=== PATIENT | female | born 1990 | race African-American/Black ===

== ENCOUNTER 2016-12-13 22:50 | Emergency (ER) | payer SELFPAY ==
[~2016-12-13] VITALS: Ht 170.2 cm; Wt 110.0 kg
[~2016-12-13 22:50] MED LIST: METH500T3 PO; PROC10TA4 PO
[2016-12-13 22:55] VITALS: BP 177/123; PULSE 79; RESP 16; TEMP 98.8; O2SAT 100
--- NOTE | 2016-12-13 23:32 | PD ---
HPI Chief Complaint: Hand Edger Problem/Complaint Time Seen by Provider: 23:13 Travel History International Travel<30 days: No Contact w/Intl Traveler<30days: No Traveled to known affect area: No History of Present Illness HPI 26-year-old female complaining of vaginal bleeding and dizziness. Patient states that she started having vaginal bleeding 3 weeks ago. Patient states that the vaginal bleeding got progressively worse for the past 3 weeks. Patient states that for the past several days, she used 7 pads a day. Patient denies abdominal pain or pelvic pain. Patient denies any headache. Patient denies any chest pain or shortness of breath. Patient denies fever chills. Patient has history of excessive vaginal bleeding in the past. Patient was seen by carpenter assistant and started on control pills. Patient was on control pills for 2 months and then stopped taking it. PFSH Past Medical History Hx Anticoagulant Therapy: No ADHD: No Anemia: Yes Bipolar Disorder: Yes Anxiety: Yes Depression: Yes Cancer: No Cardiovascular Problems: No Chemotherapy: No Cerebrovascular Accident: No Diabetes: No Diminished Hearing: No GERD: Yes Genitourinary: Yes (UTI'S) Headaches: Yes Hypertension: Yes Neurologic: Yes (FREQUENT HEADACHES) Psychiatric: Yes Reproductive: Yes Respiratory: No Immunizations Current: Yes Migraines: Yes Seizures: No Thyroid Disease: No Ulcer: Yes ?: Not LMP: 12/04/16 : 0 Ovarian Cysts: Yes (LEFT) Past Surgical History Appendectomy: No Cholecystectomy: No Hysterectomy: No Other Surgery: No Social History Alcohol Use: No Tobacco Use: No Substance Use: No Allergies-Medications (Allergen,Severity, Reaction): Coded Allergies: Red Dyes - Various (Verified Allergy, Severe, RASH, 12/13/16) Seafood (Verified Allergy, Severe, THROAT SWELLING, 12/13/16) Bactrim (Unverified Allergy, Intermediate, Hives, 12/13/16) Neosporin (Verified Allergy, Intermediate, RASH AND HIVES, 12/13/16) Mustard (Verified Allergy, Unknown, 12/13/16) *MDRO Multi-Drug Resistant Organism (Unverified Adverse Reaction, Unknown , 12/13/16) MRSA Reported Meds & Prescriptions Reported Meds & Active Scripts Active No Active Prescriptions or Reported Medications Review of Systems General / Constitutional: No: Fever Eyes: No: Visual changes HENT: Positive: Lightheadedness, No: Headaches Cardiovascular: No: Chest Pain or Discomfort Respiratory: No: Shortness of Breath Gastrointestinal: No: Abdominal Pain Genitourinary: Positive: Vaginal Bleeding, No: Dysuria Musculoskeletal: No: Pain Skin: No Rash Neurologic: No: Weakness Psychiatric: No: Depression Endocrine: No: Polydipsia Hematologic/Lymphatic: No: Easy Bruising Physical Exam Narrative GENERAL: Well-nourished, well-developed patient. SKIN: Focused skin assessment warm/dry. HEAD: Normocephalic. EYES: No scleral icterus. No injection or drainage. NECK: Supple, trachea midline. No JVD or lymphadenopathy. CARDIOVASCULAR: Regular rate and rhythm without murmurs, gallops, or rubs. RESPIRATORY: Breath sounds equal bilaterally. No accessory muscle use. GASTROINTESTINAL: Abdomen soft, non-tender, nondistended. MUSCULOSKELETAL: No cyanosis, or edema. BACK: Nontender without obvious deformity. No CVA tenderness. Neurologic exam normal. FINANCIAL ANALYSIS CONSULTANT exam: Data Data Last Documented VS Vital Signs Date Time Temp Pulse Resp B/P Pulse Ox O2 Delivery O2 Flow Rate FiO2 12/13/16 22:55 98.8 79 16 177/123 100 Room Air Orders Complete Blood Count With Diff (12/13/16 23:24) Basic Metabolic Panel (Bmp) (12/13/16 23:24) Iv Access Insert/Monitor (12/13/16 23:24) Ed Urine Pregnancytest Poc (12/13/16 23:24) Labs Laboratory Tests Test 12/13/16 23:35 White Blood Count 7.3 TH/MM3 Red Blood Count 3.55 MIL/MM3 Hemoglobin 8.6 GM/DL Hematocrit 27.0 % Mean Corpuscular Volume 76.2 FL Mean Corpuscular Hemoglobin 24.3 PG Mean Corpuscular Hemoglobin 31.9 % Concent Red Cell Distribution Width 16.7 % Platelet Count 248 TH/MM3 Mean Platelet Volume 8.9 FL Neutrophils (%) (Auto) 58.1 % Lymphocytes (%) (Auto) 36.7 % Monocytes (%) (Auto) 3.5 % Eosinophils (%) (Auto) 1.4 % Basophils (%) (Auto) 0.3 % Neutrophils # (Auto) 4.3 TH/MM3 Lymphocytes # (Auto) 2.7 TH/MM3 Monocytes # (Auto) 0.3 TH/MM3 Eosinophils # (Auto) 0.1 TH/MM3 Basophils # (Auto) 0.0 TH/MM3 CBC Comment AUTO DIFF Differential Comment AUTO DIFF CONFIRMED Ovalocytes 1+ Sodium Level 139 MEQ/L Potassium Level 3.7 MEQ/L Chloride Level 104 MEQ/L Carbon Dioxide Level 25.6 MEQ/L Anion Gap 9 MEQ/L Blood Urea Nitrogen 12 MG/DL Creatinine 0.77 MG/DL Estimat Glomerular Filtration 109 ML/MIN Rate Random Glucose 119 MG/DL Calcium Level 8.9 MG/DL [facility] Medical Decision Making Medical Screen Exam Complete: Yes Emergency Medical Condition: Yes Interpretation(s) 23:43 PM. Urine test negative. 12:11 AM. CBC with hemoglobin 8.6 hematocrit 27.0. Patient has hemoglobin baseline around 9. MCV 76.2. BMP within normal limit. Differential Diagnosis Differential diagnosis including menorrhagia, threatened AB, incomplete AB, completed AB, ectopic . Narrative Course 26-year-old female with persistent vaginal bleeding. History of excessive vaginal bleeding in the past. Provera 10 mg by mouth now. Diagnosis Primary Impression: Menorrhagia Qualified Code: N92.0 - Menorrhagia with regular cycle Patient Instructions: General Instructions Additional Instructions: November better as directed. Follow-up with personal physician and carpenter assistant. Return if worse. Med/Other Pt SpecificInfo: Prescription(s) given Scripts Medroxyprogesterone Acetate (Provera)10 Mg Tab10 Mg PO DAILY #10 TAB Ref 0 Start day 16 Prov:Ramon Rojas MD 12/14/16 Disposition: 01 DISCHARGE HOME Condition: Stable Ramon Rojas MD Dec 13, 2016 23:32
[2016-12-13 23:41] LABS: AUTOMATED NEUTROPHIL # 4.3 TH/MM3 (1.8-7.7); BASOPHIL % 0.3 % (0.0-2.0); EOSINOPHIL # 0.1 TH/MM3 (0-0.4); EOSINOPHIL % 1.4 % (0.0-4.0); LYMPH % 36.7 % (9.0-44.0); LYMPHOCYTE # 2.7 TH/MM3 (1.0-4.8); MEAN CELL VOLUME 76.2 FL (80.0-100.0); MEAN CORPUSCULAR HEMOGLOBIN 24.3 PG (27.0-34.0); MEAN CORPUSCULAR HGB CONC 31.9 % (32.0-36.0); MONO % 3.5 % (0.0-8.0); NEUT % 58.1 % (16.0-70.0); PLATELET COUNT 248 TH/MM3 (150-450); RED BLOOD COUNT 3.55 MIL/MM3 (4.00-5.30); RED CELL DISTRIBUTION WIDTH 16.7 % (11.6-17.2); WHITE BLOOD COUNT 7.3 TH/MM3 (4.0-11.0)
[2016-12-13 23:43] LABS: HEMO FLAGS AUTO DIFF
[2016-12-14] LABS: BICARBONATE 25.6 MEQ/L (21.0-32.0); POTASSIUM 3.7 MEQ/L (3.5-5.1)
[2016-12-14 00:04] LABS: OVALOCYTES 1+ (NORMAL); SCAN/DIFF AUTO DIFF CONFIRMED
[2016-12-14] MEDS ORDERED: PROV10TA PO (00:13)
[2016-12-14] MEDS ORDERED: medroxyPROGESTERone ACETATE 10 MG TAB PO ONE (00:30)
== END 2016-12-14 00:49 | disposition home or self-care (01) ==
LOC: NEPE 22:50
DX: I10 Essential (primary) hypertension (principal); F41.9 Anxiety disorder, unspecified; F31.9 Bipolar disorder, unspecified
CPT/HCPCS: 80048; 84703; 85025; 99284

== ENCOUNTER 2017-09-10 21:31 | Emergency (ER) | payer SELFPAY ==
[~2017-09-10] VITALS: Ht 170.2 cm; Wt 117.8 kg
[~2017-09-10 21:31] MED LIST changes: -METH500T3 PO; -PROC10TA4 PO; +PROV10TA PO
[2017-09-10 21:45] VITALS: BP 145/99; PULSE 74; RESP 20; TEMP 98.5; O2SAT 100
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
--- NOTE | 2017-09-10 23:30 | RADRPT ---
EXAM DATE/TIME: 09/10/2017 22:58 [facility] COMPARISON: CT BRAIN W/O CONTRAST, October 15, 2015, 13:56. INDICATIONS : Cephalgia. RADIATION DOSE: 65.85 CTDIvol (mGy) MEDICAL HISTORY : Hypertension. SURGICAL HISTORY : None. ENCOUNTER: Initial ACUITY: 1 week PAIN SCALE: 7/10 LOCATION: Right cranial TECHNIQUE: Multiple contiguous axial images were obtained of the head. Using automated exposure control and adj ustment of the mA and/or kV according to patient size, radiation dose was kept as low as reasonably a chievable to obtain optimal diagnostic quality images. DICOM format image data is available electro nically for review and comparison. FINDINGS: CEREBRUM: The ventricles are normal for age. No evidence of midline shift, mass lesion, hemorrhage or acute in farction. No extra-axial fluid collections are seen. POSTERIOR FOSSA: The cerebellum and brainstem are intact. The 4th ventricle is midline. The cerebellopontine angle i s unremarkable. EXTRACRANIAL: The visualized portion of the orbits is intact. SKULL: The calvaria is intact. No evidence of skull fracture. CONCLUSION: No acute disease. Matt Vaz MD on September 10, 2017 at 23:26 Board Certified Radiologist. This report was verified electronically.
--- NOTE | 2017-09-10 23:47 | RADRPT ---
EXAM DATE/TIME: 09/10/2017 22:58 [facility] COMPARISON: No previous studies available for comparison. INDICATIONS : Cephalgia. Cervical radiculopathy. RADIATION DOSE: 26.51 CTDIvol (mGy) MEDICAL HISTORY : Hypertension. SURGICAL HISTORY : None. ENCOUNTER: Initial ACUITY: 1 week PAIN SCALE: 7/10 LOCATION: Right neck upper extremity TECHNIQUE: Volumetric scanning of the cervical spine was performed. Multiplanar reconstructions in the sagittal, coronal and oblique axial planes were performed. Using automated exposure control and adjustment o f the mA and/or kV according to patient size, radiation dose was kept as low as reasonably achievable to obtain optimal diagnostic quality images. DICOM format image data is available electronically f or review and comparison. FINDINGS: VERTEBRAE: Normal vertebral body height. The head and neck are held in flexion. ALIGNMENT: No evidence of subluxation. C2-C3: The bony spinal canal is normal in size. No evidence of disc bulge or herniation. The neural forami na are bilaterally patent. C3-C4: The bony spinal canal is normal in size. No evidence of disc bulge or herniation. The neural forami na are bilaterally patent. C4-C5: The bony spinal canal is normal in size. No evidence of disc bulge or herniation. The neural forami na are bilaterally patent. C5-C6: The bony spinal canal is normal in size. No evidence of disc bulge or herniation. The neural forami na are bilaterally patent. C6-C7: The bony spinal canal is normal in size. No evidence of disc bulge or herniation. The neural forami na are bilaterally patent. C7-T1: The bony spinal canal is normal in size. No evidence of disc bulge or herniation. The neural forami na are bilaterally patent. CONCLUSION: Normal examination. Matt Vaz MD on September 10, 2017 at 23:44 Board Certified Radiologist. This report was verified electronically.
[2017-09-11] MEDS ORDERED: ROBA750T PO (00:09)
[2017-09-11] MEDS ORDERED: KETOROLAC TROMETHAMINE 60 MG/2 ML (IM) VIAL IM ONE (00:15)
[2017-09-11] MEDS ORDERED: ORPHENADRINE INJ 60 MG/2 ML AMP IM ONE (00:15)
== END 2017-09-11 00:59 | disposition home or self-care (01) ==
LOC: PHED 21:31
DX: S16.1XXA Strain of muscle, fascia and tendon at neck level, initial encounter (principal); I10 Essential (primary) hypertension; D64.9 Anemia, unspecified; F41.9 Anxiety disorder, unspecified; F31.9 Bipolar disorder, unspecified; K21.9 Gastro-esophageal reflux disease without esophagitis; N83.209 Unspecified ovarian cyst, unspecified side; Z87.440 Personal history of urinary (tract) infections; Z88.2 Allergy status to sulfonamides; Z88.8 Allergy status to other drugs, medicaments and biological substances
CPT/HCPCS: 70450; 72125; 84703; 96372; 99285; J1885; J2360

== ENCOUNTER 2017-11-09 20:01 | Emergency (ER) | payer SELFPAY ==
[~2017-11-09] VITALS: Ht 170.2 cm; Wt 110.0 kg
[~2017-11-09 20:01] MED LIST changes: -PROV10TA PO; +ROBA750T PO
[2017-11-09 21:08] VITALS: BP 149/88; PULSE 93; RESP 16; TEMP 101.7; O2SAT 99
[2017-11-09] MEDS ORDERED: SODIUM CHLOR 0.9% 1000 ML INJ 1,000 ML IV SCH (23:06)
--- NOTE | 2017-11-09 23:09 | PD ---
HPI Chief Complaint: Cold / Flu Symptoms Time Seen by Provider: 23:02 Travel History International Travel<30 days: No Contact w/Intl Traveler<30days: No Traveled to known affect area: No History of Present Illness HPI This is a 27-year-old female presents for evaluation of sore throat, myalgias, fevers, chills. Symptoms started 3 days ago. It hurts to swallow. She denies any cough, congestion, rash, recent travel, nausea or vomiting, abdominal pain. She has been using [id number] cough and cold medications for symptom control. No sick contacts. She has no other complaints at this time. PFSH Past Medical History Hx Anticoagulant Therapy: No ADHD: No Anemia: Yes Bipolar Disorder: Yes Anxiety: Yes Depression: Yes Cancer: No Cardiovascular Problems: No Chemotherapy: No Cerebrovascular Accident: No Diabetes: No Diminished Hearing: No GERD: Yes Genitourinary: Yes (UTI'S) Headaches: Yes Hypertension: Yes Neurologic: Yes (FREQUENT HEADACHES) Psychiatric: Yes Reproductive: Yes Respiratory: No Immunizations Current: Yes Migraines: Yes Seizures: No Thyroid Disease: No Ulcer: Yes Tetanus Vaccination: Unknown Influenza Vaccination: No ?: Not LMP: 11/06/2017 : 0 Ovarian Cysts: Yes (LEFT) Past Surgical History Appendectomy: No Cholecystectomy: No Hysterectomy: No Other Surgery: No Social History Alcohol Use: No Tobacco Use: No Substance Use: No Allergies-Medications (Allergen,Severity, Reaction): Coded Allergies: Fish Containing Products (Unverified Allergy, Severe, THROAT SWELLING, ) red dye (Unverified Allergy, Severe, RASH, 11/09/17) bacitracin (Unverified Allergy, Intermediate, RASH AND HIVES, 11/09/17) gramicidin D (Unverified Allergy, Intermediate, RASH AND HIVES, 11/09/17) neomycin (Unverified Allergy, Intermediate, RASH AND HIVES, 11/09/17) polymyxin B (Unverified Allergy, Intermediate, RASH AND HIVES, 11/09/17) sulfamethoxazole (Unverified Allergy, Intermediate, Hives, 11/09/17) trimethoprim (Unverified Allergy, Intermediate, Hives, 11/09/17) mustard (Unverified Allergy, Unknown, 11/09/17) *MDRO Multi-Drug Resistant Organism (Unverified Adverse Reaction, Unknown , 11/09/17) MRSA Reported Meds & Prescriptions Reported Meds & Active Scripts Active Prednisone 20 Mg Tab 20 Mg PO BID 5 Days Amoxicillin 875 Mg Tab 875 Mg PO BID 10 Days Robaxin (Methocarbamol) 750 Mg Tab 750 Mg PO Q6HR Review of Systems Except as stated in HPI: all other systems reviewed are Neg Physical Exam Narrative GENERAL: Well-developed well-nourished female in no acute distress. She is febrile tachycardic. SKIN: Warm and dry. HEAD: Atraumatic. Normocephalic. EYES: Pupils equal and round. No scleral icterus. No injection or drainage. ENT: No nasal bleeding or discharge. Mucous membranes pink and moist. There is oral pharyngeal erythema, exudate. Uvula midline with no mass-effect. NECK: Trachea midline. No JVD. Tender anterior cervical lymphadenopathy noted. Neck supple full range of motion. CARDIOVASCULAR: Regular rate and rhythm. No murmur appreciated. RESPIRATORY: No accessory muscle use. Clear to auscultation. Breath sounds equal bilaterally. GASTROINTESTINAL: Abdomen soft, non-tender, nondistended. Hepatic and splenic margins not palpable. Data Data Last Documented VS Vital Signs Date Time Temp Pulse Resp B/P (MAP) Pulse Ox O2 Delivery O2 Flow Rate FiO2 11/09/17 21:08 101.7 93 16 149/88 (108) 99 Room Air Orders Orders Complete Blood Count With Diff (11/09/17 23:06) Basic Metabolic Panel (Bmp) (11/09/17 23:06) Monoscreen (11/09/17 23:06) Sodium Chlor 0.9% 1000 Ml Inj (Ns 1000 M (11/09/17 23:06) Ketorolac Inj (Toradol Inj) (11/09/17 23:15) Dexamethasone Inj (Decadron Inj) (11/09/17 23:15) Ed Urine Pregnancytest Poc (11/09/17 23:06) Group A Rapid Strep Screen (11/09/17 23:06) Amoxicillin (Trimox) (11/10/17 00:45) Potassium Chloride (Kcl) (11/10/17 00:45) Ed Discharge Order (11/10/17 01:31) Labs Laboratory Tests Test 11/09/17 23:20 White Blood Count 10.8 TH/MM3 Red Blood Count 4.28 MIL/MM3 Hemoglobin 10.2 GM/DL Hematocrit 31.7 % Mean Corpuscular Volume 74.2 FL Mean Corpuscular Hemoglobin 23.9 PG Mean Corpuscular Hemoglobin Concent 32.2 % Red Cell Distribution Width 18.6 % Platelet Count 227 TH/MM3 Mean Platelet Volume 9.6 FL Neutrophils (%) (Auto) 79.8 % Lymphocytes (%) (Auto) 13.7 % Monocytes (%) (Auto) 6.0 % Eosinophils (%) (Auto) 0.2 % Basophils (%) (Auto) 0.3 % Neutrophils # (Auto) 8.6 TH/MM3 Lymphocytes # (Auto) 1.5 TH/MM3 Monocytes # (Auto) 0.7 TH/MM3 Eosinophils # (Auto) 0.0 TH/MM3 Basophils # (Auto) 0.0 TH/MM3 CBC Comment DIFF FINAL Differential Comment Blood Urea Nitrogen 9 MG/DL Creatinine 0.83 MG/DL Random Glucose 110 MG/DL Calcium Level 8.9 MG/DL Sodium Level 138 MEQ/L Potassium Level 3.0 MEQ/L Chloride Level 103 MEQ/L Carbon Dioxide Level 23.7 MEQ/L Anion Gap 11 MEQ/L Estimat Glomerular Filtration Rate 99 ML/MIN Monoscreen NEG MDM Medical Decision Making Medical Screen Exam Complete: Yes Emergency Medical Condition: Yes Medical Record Reviewed: Yes Differential Diagnosis Exudative pharyngitis, tonsillitis, peritonsillar abscess, infectious mononucleosis, herpangina, epiglottitis, retropharyngeal abscess Narrative Course 19-year-old female with 3 days of sore throat, fevers, chills, myalgias. On examination she is febrile, tachycardic. She has exudative pharyngitis. Lab work, rapid strep screen, mono screen have been ordered. She will be given IV fluids, Toradol, Decadron. Rapid strep screen positive. Potassium is 3.0 oral potassium chloride was administered. Stable for discharge amoxicillin. Diagnosis Primary Impression: Streptococcal pharyngitis Additional Impression: Hypokalemia Additional Instructions: Medication as prescribed. Tylenol Motrin for pain and fever. Stay well hydrated. Return for any emergent medical conditions. Med/Other Pt SpecificInfo: Prescription(s) given Scripts Prednisone (Prednisone) 20 Mg Tab 20 MG PO BID for 5 Days, #10 TAB 0 Refills Prov: Mainor Morales MD 11/10/17 Amoxicillin (Amoxicillin) 875 Mg Tab 875 MG PO BID for Infection for 10 Days, #20 TAB 0 Refills Prov: Mainor Morales MD 11/10/17 Disposition: 01 DISCHARGE HOME Condition: Stable Hector Christensen Nov 09, 2017 23:09
[2017-11-09] MEDS ORDERED: DEXAMETHASONE SOD PHOS 20 MG/5 ML VIAL IV PUSH ONE (23:15)
[2017-11-09] MEDS ORDERED: KETOROLAC TROMETHAMINE 30 MG/ML (IVP) VIAL IVP ONE (23:15)
[2017-11-10 00:12] LABS: AUTOMATED NEUTROPHIL # 8.6 TH/MM3 (1.8-7.7); BASOPHIL % 0.3 % (0.0-2.0); EOSINOPHIL % 0.2 % (0.0-4.0); HEMATOCRIT 31.7 % (35.0-46.0); HEMOGLOBIN 10.2 GM/DL (11.6-15.3); LYMPH % 13.7 % (9.0-44.0); LYMPHOCYTE # 1.5 TH/MM3 (1.0-4.8); MEAN CELL VOLUME 74.2 FL (80.0-100.0); MEAN CORPUSCULAR HEMOGLOBIN 23.9 PG (27.0-34.0); MEAN CORPUSCULAR HGB CONC 32.2 % (32.0-36.0); MEAN PLATELET VOLUME 9.6 FL (7.0-11.0); MONOCYTE # 0.7 TH/MM3 (0-0.9); NEUT % 79.8 % (16.0-70.0); PLATELET COUNT 227 TH/MM3 (150-450); RED BLOOD COUNT 4.28 MIL/MM3 (4.00-5.30); RED CELL DISTRIBUTION WIDTH 18.6 % (11.6-17.2); WHITE BLOOD COUNT 10.8 TH/MM3 (4.0-11.0)
[2017-11-10 00:20] LABS: MONOSCREEN NEG (NEG)
[2017-11-10 00:34] LABS: BICARBONATE 23.7 MEQ/L (21.0-32.0); CALCIUM 8.9 MG/DL (8.5-10.1); CREATININE 0.83 MG/DL (0.50-1.00)
[2017-11-10] MEDS ORDERED: AMOX875T PO (00:39)
[2017-11-10] MEDS ORDERED: PRED20 PO (00:39)
[2017-11-10] MEDS ORDERED: POTASSIUM CHLORIDE 20 MEQ CONTROLLED RELEASE TAB PO ONE (00:45)
[2017-11-10] MEDS ORDERED: AMOXICILLIN 875 MG TAB PO ONE (00:45)
== END 2017-11-10 01:58 | disposition home or self-care (01) ==
LOC: NEPD 20:01
DX: J02.0 Streptococcal pharyngitis (principal); E87.6 Hypokalemia
CPT/HCPCS: 80048; 84703; 85025; 86308; 87880; 96361; 96374; 96375; 99284; J1100; J1885; J7030

== ENCOUNTER 2018-01-18 14:51 | Emergency (ER) | payer SELFPAY ==
[~2018-01-18] VITALS: Ht 170.2 cm; Wt 121.0 kg
[~2018-01-18 14:51] MED LIST changes: +AMOX875T PO; +PRED20 PO
[2018-01-18 15:02] VITALS: BP 169/98; PULSE 78; RESP 18; TEMP 98.3; O2SAT 100
[2018-01-18] MEDS ORDERED: ASPIRIN 325 MG TAB PO ONE (15:15)
--- NOTE | 2018-01-18 15:19 | PD ---
HPI Chief Complaint: Chest Pain Time Seen by Provider: 15:00 Travel History International Travel<30 days: No Contact w/Intl Traveler<30days: No Traveled to known affect area: No History of Present Illness HPI Patient presents to the emergency department complaining of chest pain and dizziness. States that she feels dizzy at rest on exertion. Prior to the dizziness she developed chest tightness. Tightness is described as being in the sternal area and bilaterally, 5-6 out of 10, alleviated with relaxing, worse with breathing. No onset of symptoms. Denies recent travel, fever, chills, vomiting, numbness, tingling , or cough. She is reporting left foot swelling, intermittent headache, and nausea. Last menstrual period was approximately 2 weeks ago. PFSH Past Medical History Hx Anticoagulant Therapy: No ADHD: No Anemia: Yes Bipolar Disorder: Yes Anxiety: Yes Depression: Yes Cancer: No Cardiovascular Problems: No Chemotherapy: No Cerebrovascular Accident: No Diabetes: No Diminished Hearing: No GERD: Yes Genitourinary: Yes (UTI'S) Headaches: Yes Hypertension: Yes Neurologic: Yes (FREQUENT HEADACHES) Psychiatric: Yes Reproductive: Yes Respiratory: No Immunizations Current: Yes Migraines: Yes Seizures: No Thyroid Disease: No Ulcer: Yes Influenza Vaccination: No ?: Not : 0 Ovarian Cysts: Yes (LEFT) Past Surgical History Appendectomy: No Cholecystectomy: No Hysterectomy: No Other Surgery: No Family History Narrative Family History Anemia Social History Alcohol Use: No Tobacco Use: No Substance Use: No Allergies-Medications (Allergen,Severity, Reaction): Coded Allergies: Fish Containing Products (Unverified Allergy, Severe, THROAT SWELLING, ) red dye (Unverified Allergy, Severe, RASH, 01/18/18) bacitracin (Unverified Allergy, Intermediate, RASH AND HIVES, 01/18/18) gramicidin D (Unverified Allergy, Intermediate, RASH AND HIVES, 01/18/18) neomycin (Unverified Allergy, Intermediate, RASH AND HIVES, 01/18/18) polymyxin B (Unverified Allergy, Intermediate, RASH AND HIVES, 01/18/18) sulfamethoxazole (Unverified Allergy, Intermediate, Hives, 01/18/18) trimethoprim (Unverified Allergy, Intermediate, Hives, 01/18/18) mustard (Unverified Allergy, Unknown, HIVES, 01/18/18) *MDRO Multi-Drug Resistant Organism (Unverified Adverse Reaction, Unknown , 01/18/18) MRSA Reported Meds & Prescriptions Reported Meds & Active Scripts Active No Active Prescriptions or Reported Medications Review of Systems Except as stated in HPI: all other systems reviewed are Neg Physical Exam Narrative GENERAL: No acute distress. SKIN: Focused skin assessment warm/dry. HEAD: Atraumatic. Normocephalic. EYES: Extraocular muscles intact bilaterally. No scleral icterus. No injection or drainage. ENT: No nasal bleeding or discharge. Mucous membranes pink and moist. NECK: Trachea midline. No JVD. CARDIOVASCULAR: Regular rate and rhythm. No murmur appreciated. 2+ radial DP pulses bilaterally. Chest wall not tender to palpation. RESPIRATORY: No accessory muscle use. Clear to auscultation. Breath sounds equal bilaterally. GASTROINTESTINAL: Abdomen soft, obese, nontender. MUSCULOSKELETAL: No obvious deformities. No clubbing. No cyanosis. No edema. NEUROLOGICAL: Awake and alert. No obvious cranial nerve deficits. Motor grossly within normal limits. Normal speech. PSYCHIATRIC: Appropriate mood and affect; insight and judgment normal. Data Data Last Documented VS Vital Signs Date Time Temp Pulse Resp B/P (MAP) Pulse Ox O2 Delivery O2 Flow Rate FiO2 01/18/18 19:00 16 100 Room Air 01/18/18 18:17 67 152/67 (95) 01/18/18 15:02 98.3 Orders Orders Electrocardiogram (01/18/18 15:11) B-Type Natriuretic Peptide (01/18/18 15:11) Ckmb (Isoenzyme) Profile (01/18/18 15:11) Complete Blood Count With Diff (01/18/18 15:11) Comprehensive Metabolic Panel (01/18/18 15:11) D-Dimer (01/18/18 15:11) Magnesium (Mg) (01/18/18 15:11) Prothrombin Time / Inr (Pt) (01/18/18 15:11) Act Partial Throm Time (Ptt) (01/18/18 15:11) Troponin I (01/18/18 15:11) Aspirin (Aspirin) (01/18/18 15:15) Ed Urine Pregnancytest Poc (01/18/18 15:11) Chest, Single Ap (01/18/18 15:11) Orthostatic Vital Signs (01/18/18 15:11) CKMB (01/18/18 15:15) CKMB% (01/18/18 15:15) Ckmb (Isoenzyme) Profile (01/18/18 18:15) Troponin I (01/18/18 18:15) Electrocardiogram (01/18/18 18:27) CKMB (01/18/18 18:12) CKMB% (01/18/18 18:12) Ketorolac Inj (Toradol Inj) (01/18/18 19:15) Labs Laboratory Tests Test 01/18/18 15:15 01/18/18 18:12 White Blood Count 5.1 TH/MM3 Red Blood Count 4.43 MIL/MM3 Hemoglobin 10.8 GM/DL Hematocrit 33.1 % Mean Corpuscular Volume 74.8 FL Mean Corpuscular Hemoglobin 24.3 PG Mean Corpuscular Hemoglobin Concent 32.5 % Red Cell Distribution Width 17.5 % Platelet Count 328 TH/MM3 Mean Platelet Volume 9.9 FL Neutrophils (%) (Auto) 54.3 % Lymphocytes (%) (Auto) 39.5 % Monocytes (%) (Auto) 4.4 % Eosinophils (%) (Auto) 1.5 % Basophils (%) (Auto) 0.3 % Neutrophils # (Auto) 2.8 TH/MM3 Lymphocytes # (Auto) 2.0 TH/MM3 Monocytes # (Auto) 0.2 TH/MM3 Eosinophils # (Auto) 0.1 TH/MM3 Basophils # (Auto) 0.0 TH/MM3 CBC Comment AUTO DIFF Differential Comment AUTO DIFF CONFIRMED Prothrombin Time 10.4 SEC Prothromb Time International Ratio 1.0 RATIO Activated Partial Thromboplast Time 25.3 SEC D-Dimer Quantitative (PE/DVT) LESS THAN 0.19 MG/L FEU Blood Urea Nitrogen 8 MG/DL Creatinine 0.68 MG/DL Random Glucose 102 MG/DL Total Protein 8.5 GM/DL Albumin 3.9 GM/DL Calcium Level 8.8 MG/DL Magnesium Level 1.9 MG/DL Alkaline Phosphatase 66 U/L Aspartate Amino Transf (AST/SGOT) 18 U/L Alanine Aminotransferase (ALT/SGPT) 22 U/L Total Bilirubin 0.2 MG/DL Sodium Level 139 MEQ/L Potassium Level 3.8 MEQ/L Chloride Level 108 MEQ/L Carbon Dioxide Level 25.5 MEQ/L Anion Gap 6 MEQ/L Estimat Glomerular Filtration Rate 125 ML/MIN Total Creatine Kinase 168 U/L 135 U/L Creatine Kinase MB 0.9 NG/ML 0.5 NG/ML Troponin I LESS THAN 0.02 NG/ML LESS THAN 0.02 NG/ML B-Type Natriuretic Peptide 22 PG/ML MDM Medical Decision Making Medical Screen Exam Complete: Yes Emergency Medical Condition: Yes Interpretation(s) Urine negative EKG, sinus rhythm, rate 80, QTc 430, normal axis, T-wave inversion in lead V1 and V2 and 3. Labs: Coags and d-dimer normal, cardiac enzymes normal, hemoglobin and hematocrit slightly decreased at 10 and 33 Last Impressions Chest X-Ray 01/18/18 1511 Signed Impressions: CONCLUSION: Stable chest without evidence of acute cardiopulmonary process. 3 hour repeat EKG: Sinus rhythm, rate 66, EDC 427 normal axis, T-wave inversion in 3 and V1. Repeat 3 hour cardiac enzymes within normal limits. Differential Diagnosis PE, ACS, musculoskeletal chest pain, ulcer disease, Narrative Course Patient presents to the emergency department complaining of dizziness and chest pain. Was placed on a lunchroom monitor, IV access obtain, EKG done. Chest x-ray , labs, aspirin 325 mg p.o. ordered. 1901: Patient given 30 mg IV Toradol for headache. 1940: Patient reports headache and chest discomfort improved after Toradol. Will discharge. Diagnosis Primary Impression: Chest pain Qualified Codes: R07.9 - Chest pain, unspecified Additional Impression: Headache Qualified Codes: R51 - Headache Referrals: Slim Holt MD Patient Instructions: Acute Headache (ED), Chest Pain (ED), General Instructions Additional Instructions: 1. Follow-up with [facility] to determine eligible primary care doctors. 2. Follow -up with primary care physician in 24-48 hours. Will refer to [facility] for follow-up in the interim. 3. Return to the ER for fever, vomiting, lower extremity swelling, shortness of breath, or for any new/worrisome/worsening symptoms. 4. Follow-up with Dr. 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 Scripts No Active Prescriptions or Reported Meds Disposition: DISCHARGE HOME Condition: Stable Beth Christie MD January 18, 2018 15:19
[2018-01-18 15:32] LABS: AUTOMATED NEUTROPHIL # 2.8 TH/MM3 (1.8-7.7); BASOPHIL % 0.3 % (0.0-2.0); EOSINOPHIL # 0.1 TH/MM3 (0-0.4); EOSINOPHIL % 1.5 % (0.0-4.0); HEMATOCRIT 33.1 % (35.0-46.0); HEMOGLOBIN 10.8 GM/DL (11.6-15.3); LYMPH % 39.5 % (9.0-44.0); MEAN CELL VOLUME 74.8 FL (80.0-100.0); MEAN CORPUSCULAR HEMOGLOBIN 24.3 PG (27.0-34.0); MEAN CORPUSCULAR HGB CONC 32.5 % (32.0-36.0); MEAN PLATELET VOLUME 9.9 FL (7.0-11.0); MONO % 4.4 % (0.0-8.0); MONOCYTE # 0.2 TH/MM3 (0-0.9); NEUT % 54.3 % (16.0-70.0); PLATELET COUNT 328 TH/MM3 (150-450); RED BLOOD COUNT 4.43 MIL/MM3 (4.00-5.30); RED CELL DISTRIBUTION WIDTH 17.5 % (11.6-17.2); WHITE BLOOD COUNT 5.1 TH/MM3 (4.0-11.0)
--- NOTE | 2018-01-18 15:36 | RADRPT ---
EXAM DATE: 01/18/2018 3:32 PM EDT AGE/SEX: 27 years / Female INDICATIONS: Chest tightness, difficulty breathing starting today CLINICAL DATA: This is the patient's initial encounter. Patient reports that signs and symptoms have been present for 1 day and indicates a pain score of 0/10. MEDICAL/SURGICAL HISTORY: Hypertension. None. COMPARISON: [facility] – [place], CHEST SINGLE AP, 12/03/2012. . FINDINGS: A single AP view of the chest demonstrates the lungs to be symmetrically aerated without evidence of mass, infiltrate or effusion. The cardiomediastinal contours are unremarkable. Osseous structures a re intact. CONCLUSION: Stable chest without evidence of acute cardiopulmonary process. Electronically signed by: Shabbir Perry MD 01/18/2018 3:34 PM EDT
[2018-01-18 15:41] VITALS: BP_SYST 145; BP_SYST 147; BP_SYST 164; BP_DIAS 100; BP_DIAS 85; BP_DIAS 93; RESP 18
[2018-01-18 15:46] LABS: CHLORIDE 108 MEQ/L (98-107); SODIUM (NA) 139 MEQ/L (136-145)
[2018-01-18 15:49] LABS: CALCIUM 8.8 MG/DL (8.5-10.1)
[2018-01-18 15:50] LABS: ALBUMIN 3.9 GM/DL (3.4-5.0); BICARBONATE 25.5 MEQ/L (21.0-32.0); BLOOD UREA NITROGEN 8 MG/DL (7-18); GLUCOSE,RANDOM 102 MG/DL (74-106); MAGNESIUM 1.9 MG/DL (1.5-2.5)
[2018-01-18 15:53] LABS: ALT (GPT) 22 U/L (10-53); AST (GOT) 18 U/L (15-37); CREATININE 0.68 MG/DL (0.50-1.00); GLOMERULAR FILTRATION RATE 125 ML/MIN (>89)
[2018-01-18 15:55] LABS: TOTAL BILIRUBIN ADULT 0.2 MG/DL (0.2-1.0); TOTAL PROTEIN 8.5 GM/DL (6.4-8.2)
[2018-01-18 15:56] LABS: ALKALINE PHOSPHATASE 66 U/L (45-117)
[2018-01-18 15:58] LABS: TROPONIN I LESS THAN 0.02 NG/ML (0.02-0.05)
[2018-01-18 16:37] LABS: PROTHROMBIN TIME - PATIENT 10.4 SEC (9.8-11.6)
[2018-01-18 16:38] LABS: D-DIMER LESS THAN 0.19 MG/L FEU (0.00-0.50)
[2018-01-18 17:10] VITALS: BP 147/93; PULSE 70; RESP 18; O2SAT 98
[2018-01-18 18:17] VITALS: BP 152/67; PULSE 67; RESP 16; O2SAT 98
[2018-01-18 18:38] LABS: TROPONIN I LESS THAN 0.02 NG/ML (0.02-0.05)
[2018-01-18 18:55] VITALS: BP 164/90; PULSE 67; RESP 16; O2SAT 100
[2018-01-18] MEDS ORDERED: KETOROLAC TROMETHAMINE 30 MG/ML (IVP) VIAL IV PUSH ONE (19:15)
[2018-01-18 19:55] VITALS: BP 164/82; PULSE 68; RESP 16; O2SAT 100
--- NOTE | 2018-01-19 15:38 | EKG ---
Date Performed: 01/18/2018 Time Performed: 18:32:05 PTAGE: 27 years EKG: Sinus rhythm NORMAL ECG Since PREVIOUS TRACING , no significant change noted PREVIOUS TRACIN01/18/2018 15.02 DOCTOR: Ronn Mejia Interpretating Date/Time 01/19/2018 15:38:48
--- NOTE | 2018-01-19 15:38 | EKG ---
Date Performed: 01/18/2018 Time Performed: 15:02:08 PTAGE: 27 years EKG: Sinus rhythm NORMAL ECG Since PREVIOUS TRACING , no significant change noted PREVIOUS TRACIN12/23/2014 19.15 DOCTOR: Ronn Mejia Interpretating Date/Time 01/19/2018 15:38:36
== END 2018-01-18 20:09 | disposition home or self-care (01) ==
LOC: PHED 14:51
DX: R07.9 Chest pain, unspecified (principal); R51 Headache; F31.9 Bipolar disorder, unspecified; F41.9 Anxiety disorder, unspecified; I10 Essential (primary) hypertension; K21.9 Gastro-esophageal reflux disease without esophagitis
CPT/HCPCS: 71045; 80053; 82550; 82552; 83735; 83880; 84484; 84703; 85025; 85379; 85610; 85730; 93005; 96374; 99285; J1885